=== PATIENT | male | born 1975 | race Caucasian/White ===

== ENCOUNTER 2020-10-06 21:02 | Emergency (ER) | payer OTHER ==
[~2020-10-06] VITALS: Ht 175.3 cm; Wt 104.3 kg
[2020-10-06] MEDS ORDERED: GABAPENTIN600 M1 PO (21:13)
[2020-10-06] MEDS ORDERED: NORCO5 PO (21:24)
[2020-10-06] MEDS ORDERED: PREDNISONE 20 M20 MG PO (21:24)
[2020-10-06 21:41] VITALS: BP 139/78
== END 2020-10-06 21:41 | disposition home or self-care (01) ==
LOC: M.ERS 21:02
DX: G56.03 Carpal tunnel syndrome, bilateral upper limbs (principal); Z88.1 Allergy status to other antibiotic agents; Z88.6 Allergy status to analgesic agent